=== PATIENT | female | born 1955 | race Caucasian/White ===

== ENCOUNTER 2016-10-07 21:05 | Emergency (ER) | payer SELFPAY ==
[~2016-10-07] VITALS: Ht 162.6 cm; Wt 68.0 kg
[2016-10-07 21:09] VITALS: Ht 162.6 cm; Wt 68.0 kg
== END 2016-10-08 01:00 | disposition left against medical advice (07) ==
LOC: E/R 21:05
DX: Z53.21 Procedure and treatment not carried out due to patient leaving prior to being seen by health care provider (principal)